=== PATIENT | female | born 1980 ===

== ENCOUNTER 2024-01-24 07:35 | Day surgery (SDC) | payer OTHER, SELFPAY ==
[2024-01-02 10:52] VITALS: BMI 20.3
[2024-01-13 11:02] VITALS: BMI 20.9
--- NOTE | 2024-01-17 13:47 | P.HP_ITS ---
History of Present Illness History of Present Illness Consent: Risks, benefits, and alternatives have been discussed and questions answered. Patient agrees to proceed with procedure. Chief complaint: Neoplasm Screening Narrative: Elvira Costa is a 43 year old female who is referred for colon cancer screening. Review of Systems Review of Systems: All systems reviewed & are unremarkable except as noted in HPI and below PMFSH Past Medical History Medical History History of breast problem Positive for BRCA 1 gene mutation 08/17/2019 Breast surgeon does exam- as she has a Mastectomy Surgical History Surgical History Delivery by section xs3 H/O bilateral mastectomy History of gynecological procedure (~01/05/22) EMB Family History Family History Mother Family history of malignant neoplasm of breast in first degree relative Other Acute myocardial infarction Alzheimers disease Breast cancer Hypertension Malignant tumor of pharynx Social History Social History Smoking status: Never smoker Alcohol intake: current Drinks per week: 4 Substance use: never Substance use type: does not use Do You Feel Safe in your Home?: Yes Lack of Transportation: No Lack of Food: Never True Current Housing: I Have Housing Concerned About Future Housing: No Difficulty Paying Gas/Electric Bills: No Difficulty Paying for Meds: No Currently Unemployed: No Education: Bachelor's Degree Difficulty w/ Childcare or Family Care: No Living arrangements: with family Occupation/Education: occupation Gender identity (if verbalized by the patient): Female Sexual Orientation (if Verbalized by the Patient): Straight or Heterosexual Spiritual care concerns: No Meds Home Medications and Allergies Home Medications Medication Instructions Recorded Confirmed Type No Home Medications 12/30/21 01/24/24 History Allergies Allergy/AdvReac Type Severity Reaction Status Date / Time No Known Allergies Allergy Unknown Verified 01/24/24 08:03 Exam Resp: Auscultation: clear to auscultation bilaterally Cardio: Rate: regular rate Rhythm: regular rhythm GI: GI Palp: Yes Soft to palpation and No Tenderness to palpation present (GI) Assessment and Plan Assessment and plan (1) Colon cancer screening: Code(s): Z12.11 - Encounter for screening for malignant neoplasm of colon Status: Acute Assessment and Plan: Colonoscopy with possible biopsy or polypectomy or cautery or injection of s ubstances.
--- NOTE | 2024-01-23 07:29 | WPDANESEPPF ---
Anes - Initial Pre Proc Eval Procedure: Operation Date: 01/24/24 09:30 Proposed Procedures p Screening Colonoscopy - Poncho Anderson MD Date/Time: 01/23/24 07:29 Surgeon: Poncho Anderson MD Pre Op Diagnosis: Neoplasm Screening Patient Data Age: 43 Gender: F Height: 1.65 m Weight: 57 kg Allergies Allergy/AdvReac Type Severity Reaction Status Date / Time No Known Allergies Allergy Unknown Verified 01/24/24 08:03 Home Medications Medication Instructions Recorded Confirmed Type No Home Medications 12/30/21 01/24/24 History Patient hx anesthesia problems: none Family hx anesthesia problems: none Results Review: All pre-operative results and documents have been reviewed as part of the pre-operative evaluation. [facility] Past Medical History Medical History History of breast problem Positive for BRCA 1 gene mutation 08/17/2019 Breast surgeon does exam- as she has a Mastectomy Surgical History Surgical History Delivery by section xs3 H/O bilateral mastectomy History of gynecological procedure (~01/05/22) EMB Family History Family History Mother Family history of malignant neoplasm of breast in first degree relative Other Acute myocardial infarction Alzheimers disease Breast cancer Hypertension Malignant tumor of pharynx Social History Social History Smoking status: Never smoker Alcohol intake: current Drinks per week: 4 Substance use: never Substance use type: does not use Do You Feel Safe in your Home?: Yes Lack of Transportation: No Lack of Food: Never True Current Housing: I Have Housing Concerned About Future Housing: No Difficulty Paying Gas/Electric Bills: No Difficulty Paying for Meds: No Currently Unemployed: No Education: Bachelor's Degree Difficulty w/ Childcare or Family Care: No Living arrangements: with family Occupation/Education: occupation Gender identity (if verbalized by the patient): Female Sexual Orientation (if Verbalized by the Patient): Straight or Heterosexual Spiritual care concerns: No Anes - Eval Final PreProcedure Day of Procedure 01/23/24 07:29 Patient weight: normal Heart: regular rate and rhythm Lungs: clear to auscultation Airway: Mallampati scale class II Neurological: alert and oriented Last oral intake: >/= 8 hours ASA classification: II Emergent: no Anesthetic plan: proceed Anesthesia type and monitoring: general GIVS and standard monitoring Results Review: All pre-operative results and documents have been reviewed as part of the pre-operative evaluation. Informed Consent: The patient's anesthetic plan and its attendant risks and benefits were discussed with the patient/family/POA. Questions were solicited and answers provided to the satisfaction of the patient/family/POA.
[2024-01-24 08:04] VITALS: BP 118/88; PULSE 99; RESP 15; TEMP 36.6; O2SAT 100
[2024-01-24] MEDS: LACTATED RINGERS 1,000 ML 150 ML IV CONT (08:07)
[2024-01-24] MEDS: SIMETHICONE ORAL SUSPENSION 20 MG/0.3 ML 30 ML BOTTLE 0.6 ML IRRIGATION (09:21)
[2024-01-24 09:30] VITALS: BP 100/69; PULSE 90; RESP 16; O2SAT 100
[2024-01-24 09:40] VITALS: BP 113/93; PULSE 82; RESP 16; O2SAT 100
[2024-01-24 09:50] VITALS: BP 112/78; PULSE 77; RESP 16; O2SAT 100
--- NOTE | 2024-01-24 10:37 | WPDANESPN ---
Anes - Prog Note Post-Op Date/Time: 01/24/24 10:37 Cardiovascular status: normal Respiratory status: normal Airway patency: baseline Mental status: baseline Post-Op hydration status: normal Vital Signs: Last Vital Signs Temp 36.6 C 01/24/24 08:04 Pulse 77 01/24/24 09:50 Resp 16 01/24/24 09:50 BP 112/78 01/24/24 09:50 Pulse Ox 100 01/24/24 09:50 O2 Del Method Room Air 01/24/24 09:50 Pain Score (VAS): 0 I/O: Intake & Output 01/23/24 01/24/24 01/24/24 23:59 07:59 15:59 Intake Total 300 Balance 300 Post-procedural complaints: none Patient Feedback: Patient satisfied with anesthetic care. Other Findings: Patient vital signs back to baseline. Patient denies nausea and vomiting. Patient's pain under control. Patient OK for discharge.
== END 2024-01-24 10:00 | disposition home or self-care (01) ==
PROVIDERS: PCP Physician Assistant; Visit Provider Internal Medicine Gastroenterology
PROC: 0DJD8ZZ Inspection of Lower Intestinal Tract, Via Natural or Artificial Opening Endoscopic (ICD-10-PCS; CPT 45378; principal; 2024-01-24 09:30)
DX: Z12.11 Encounter for screening for malignant neoplasm of colon (principal)
CPT/HCPCS: 45378